=== PATIENT | male | born 1970 | race American Indian/Alaskan Native ===

== ENCOUNTER 2017-04-20 23:22 | Emergency (ER) | payer OTHER ==
[2017-04-20 23:27] VITALS: BP 91/59
[2017-04-20] MEDS ORDERED: ZOFRAN IV ONE (23:46)
[2017-04-20] MEDS ORDERED: NACL 0.9% 1000 ML 1,000 ML IV ONE (23:47)
[2017-04-21 00:50] LABS: BUN/Creatinine Ratio 11; Blood Urea Nitrogen 11 mg/dL (9-20); Calcium 9.1 mg/dL (8.4-10.2); Hemolysis Index 9
[2017-04-21 01:09] LABS: Bilirubin,Urine NEG (Negative); Blood,Urine NEG (Negative); Color,Urine Amber (Yellow); Hyaline Casts,Urine 11 /LPF; Mucus,Urine 2+ /HPF; Nitrite,Urine NEG (Negative)
[2017-04-21 01:41] LABS: Basophils # (Auto) 0.1 K/mm3 (0.0-0.1); Eosinophils # (Auto) 0.2 K/mm3 (0.0-0.4); Eosinophils % (Auto) 1.6 % (0.0-4.3); Hematocrit 45.6 % (35.5-45.6); Lymphocytes % (Auto) 30.5 % (13.4-35.0); Mean Corpuscular HGB Conc 33 % (32-34); Mean Corpuscular Hemoglobin 28 pg (28-32); Mean Corpuscular Volume 86 fl (84-94); Monocytes # (Auto) 0.7 K/mm3 (0.0-0.8); Monocytes % (Auto) 7.6 % (0.0-7.3); Platelet Count 369 K/mm3 (140-440); Red Blood Count 5.28 M/mm3 (3.65-5.03)
[2017-04-21 01:47] LABS: Alanine Aminotransferase 18 units/L (7-56); Lipase 25 units/L (13-60)
[2017-04-21 01:56] LABS: Bilirubin,Direct < 0.2 mg/dL (0-0.2)
[2017-04-21 04:26] LABS: Basophils % (Auto) 0.7 % (0.0-1.8)
== END 2017-04-21 12:14 | disposition left against medical advice (07) ==
LOC: ED 23:22
DX: R11.2 Nausea with vomiting, unspecified (principal); Z53.21 Procedure and treatment not carried out due to patient leaving prior to being seen by health care provider
CPT/HCPCS: 36415; 80048; 80074; 81001; 82150; 82550; 82962; 83690; 85025; J2405; J7030